=== PATIENT | female | born 1955 | race Caucasian/White ===

== ENCOUNTER 2019-12-13 09:18 | Observation (INO) ==
[2019-12-13 11:18] LABS: Basophils # 0.1 10*3/uL (0.0-0.2); Basophils % 0.9 % (0.0-0.8); Eosinophils # 0.2 10*3/uL (0.0-0.87); Hematocrit 39.9 VOL% (35.7-47.0); Hemoglobin 12.4 GM/DL (12.0-16.0); Immature Granulocytes % 0.2 %; Immature Granulocytes Absolute 0.01 #; Lymphocytes # 1.6 10*3/uL (1.4-4.0); Lymphocytes % 28.4 % (21.3-54.2); Mean Corpuscular HGB Conc 31.1 GM/DL (32-36); Mean Corpuscular Volume 78.4 FL (87-102); Mean Platelet Volume 9.7 FL (9.6-12.0); Monocytes % 7.5 % (1.7-12.7); Platelet Count 197 T/CUMM (130-400); Red Blood Count 5.09 MC/CUMM (3.8-5.5); Red Cell Distribution Width 16.7 % (9.3-17.3); White Blood Count 5.5 T/CUMM (4-12)
[2019-12-13 11:39] LABS: PT Patient Result 10.7 SECS (9.8-11.9); Partial Thromboplastin Time 27.1 SECS (23.9-33.8)
[2019-12-13 11:46] LABS: Albumin 3.7 G/DL (3.4-5.0); Bilirubin,Total 0.4 MG/DL (0.2-1.0); Osmolality,Calculated 284.1 MOS/KG (273-304); Total Protein 6.8 G/DL (6.4-8.3)
[2019-12-13] MEDS ORDERED: diphenhydrAMINE CAP 25 MG CAPSULE PO PRN (12:37)
[2019-12-13] MEDS ORDERED: ALUMINUM/MAGNES/SIMETH MAX STR 30 ML UDCUP PO PRN (12:37)
[2019-12-13] MEDS ORDERED: traZODone 50 MG TABLET PO PRN (12:37)
[2019-12-13] MEDS ORDERED: ONDANSETRON 4 MG/2 ML VIAL IV PRN (12:37)
[2019-12-13] MEDS ORDERED: DOCUSATE SODIUM 100 MG CAPSULE PO PRN (12:37)
[2019-12-13] MEDS ORDERED: ACETAMINOPHEN 325 MG TABLET PO PRN (12:37)
[2019-12-13] MEDS ORDERED: SIMETHICONE CHEW 125 MG TABLET PO PRN (12:37)
[2019-12-13] MEDS ORDERED: PROMETHAZINE 25 MG TABLET PO PRN (12:37)
[2019-12-13] MEDS ORDERED: DEXTROSE 50% 25 GM/50 ML VIAL IV PRN (12:37)
[2019-12-13] MEDS ORDERED: ZALEPLON 5 MG CAPSULE PO PRN (12:37)
[2019-12-13] MEDS ORDERED: CALCIUM CARBONATE CHEW 500 MG TABLET PO PRN (12:37)
[2019-12-13] MEDS ORDERED: LACTULOSE 20 GM/30 ML UDCUP PO PRN (12:37)
[2019-12-13] MEDS ORDERED: BISACODYL 5 MG TABLET PO PRN (12:37)
[2019-12-13] MEDS ORDERED: GLUCAGON 1 MG VIAL IM PRN (12:37)
[2019-12-13] MEDS ORDERED: guaiFENesin/DM ER 600-30 MG TABLET PO PRN (12:37)
[2019-12-13] MEDS ORDERED: LORazepam 2 MG/1 ML VIAL IV STA (12:45)
[2019-12-13] MEDS ORDERED: diphenhydrAMINE 50 MG/1 ML VIAL IV STA (12:46)
[2019-12-13] MEDS ORDERED: NAPROXEN 500 MG TABLET PO PRN (13:20)
[2019-12-13 16:49] LABS: Bilirubin,Urine Negative (Negative); Blood, Urine Negative (Negative); Glucose,Urine (UA) Negative (Negative); Ketones,Urine Negative (Negative); Nitrite,Urine Negative (Negative); Protein,Urine Negative; Squamous Epithelial Cell,Urine Occasional /HPF (0-10); Urine Appearance CLEAR (Clear); Urine Color Colorless (Yellow); Urine Specific Gravity 1.003 (1.001-1.035); Urine Urobilinogen < 2.0 EU/DL (0.2-1.0); WBC,Urine <1 /HPF (0-6)
[2019-12-13] MEDS ORDERED: ROSUVASTATIN 20 MG TABLET PO SCH (21:00)
[2019-12-13] MEDS ORDERED: BIMATOPROST 0.01% OPH SOLN 2.5 ML BOTTLE BOTH EYES SCH (21:00)
[2019-12-13] MEDS: TICAGRELOR 90 MG TABLET PO SCH (21:16)
[2019-12-14 05:42] LABS: Basophils # 0.1 10*3/uL (0.0-0.2); Basophils % 0.9 % (0.0-0.8); Eosinophils # 0.2 10*3/uL (0.0-0.87); Hematocrit 38.4 VOL% (35.7-47.0); Hemoglobin 12.2 GM/DL (12.0-16.0); Immature Granulocytes % 0.4 %; Immature Granulocytes Absolute 0.02 #; Lymphocytes # 1.7 10*3/uL (1.4-4.0); Lymphocytes % 30.6 % (21.3-54.2); Mean Corpuscular HGB Conc 31.8 GM/DL (32-36); Mean Corpuscular Volume 77.9 FL (87-102); Mean Platelet Volume 9.9 FL (9.6-12.0); Monocytes % 7.6 % (1.7-12.7); Neutrophils % 56.5 % (38.7-73.9); Platelet Count 180 T/CUMM (130-400); Red Blood Count 4.93 MC/CUMM (3.8-5.5); Red Cell Distribution Width 16.4 % (9.3-17.3); White Blood Count 5.7 T/CUMM (4-12)
[2019-12-14 06:09] LABS: Albumin 3.4 G/DL (3.4-5.0); Bilirubin,Total 0.9 MG/DL (0.2-1.0); Osmolality,Calculated 281.3 MOS/KG (273-304); Risk Ratio 3.68; Thyroid Stimulating Hormone 1.73 uIU/ml (0.358-3.74); Total Protein 6.6 G/DL (6.4-8.3); VLDL CHOLESTEROL 25.4 MG/DL
[2019-12-14] MEDS ORDERED: ASPIRIN EC 81 MG TABLET PO SCH (09:00)
[2019-12-14] MEDS ORDERED: METOPROLOL SUCCINATE XL 25 MG TABLET PO SCH (09:00)
[2019-12-14] MEDS ORDERED: PANTOPRAZOLE 40 MG TABLET PO SCH (09:00)
[2019-12-14] MEDS ORDERED: THYROID 60 MG TABLET PO SCH (09:00)
[2019-12-14] MEDS: TICAGRELOR 90 MG TABLET PO SCH (10:16)
[2019-12-14 16:13] VITALS: BP 170/82
== END 2019-12-14 18:55 | disposition home or self-care (01) ==
LOC: N.ED 09:18 → N.EDINP 09:18 → N.3E 13:19
PROVIDERS: ADMIT Internal Medicine; ATTEND Internal Medicine